=== PATIENT | female | born 1985 | race Asian ===

== ENCOUNTER 2017-10-15 01:20 | Inpatient (IN) | payer BC ==
[~2017-10-15] VITALS: Ht 162.6 cm; Wt 69.9 kg
[2017-10-15] MEDS: LACTATED RINGERS 1,000 ML IV SCH ×2 (02:24→03:25)
[2017-10-15] MEDS ORDERED: CITRIC ACID/SODIUM CITRATE 30 ML UDC PO ONE (02:45)
[2017-10-15 03:06] LABS: BASOPHILS # (AUTO) 0.1 K/uL (0.00-0.22); BASOPHILS % (AUTO) 1.3 % (0.0-2.0); EOSINOPHILS # (AUTO) 0.1 K/uL (0-0.4); EOSINOPHILS % (AUTO) 1.7 % (0.0-4.0); HEMATOCRIT 30.6 % (36-48); HEMOGLOBIN 9.9 g/dL (12.0-16.0); LYMPHOCYTES # (AUTO) 1.3 K/uL (2.5-16.5); LYMPHOCYTES % (AUTO) 20.3 % (20.5-51.1); MEAN CORPUSCULAR HEMOGLOBIN 27 pg (27-31); MEAN CORPUSCULAR HGB CONC 32 g/dL (33-37); MEAN CORPUSCULAR VOLUME 84 fL (80-94); MONOCYTES # (AUTO) 0.5 K/uL (0.8-1.0); MONOCYTES % (AUTO) 8.2 % (1.7-9.3); NEUTROPHILS # (AUTO) 4.6 K/uL (1.8-7.7); NEUTROPHILS % (AUTO) 68.5 % (42.2-75.2); PLATELET COUNT (AUTO) 172 K/uL (140-450); RED BLOOD CELL COUNT(AUTO) 3.65 MIL/uL (4.20-5.40); RED CELL DISTRIBUTION WIDTH 15.6 % (11.6-13.7); WHITE BLOOD COUNT (AUTO) 6.6 K/uL (4.8-10.8)
[2017-10-15 03:07] LABS: APPEARANCE,URINE SL CLOUDY (CLEAR); BILIRUBIN,URINE NEGATIVE (NEGATIVE); BLOOD, URINE NEGATIVE (NEGATIVE); COLOR,URINE YELLOW (YELLOW); LEUKOCYTE ESTERASE ,URINE NEGATIVE (NEGATIVE); NITRITE, URINE NEGATIVE (NEGATIVE); UGLUCOSE NEGATIVE (NEGATIVE)
[2017-10-15] MEDS ORDERED: PREN-546 PO (03:20)
[2017-10-15] MEDS ORDERED: FERR325E14 PO (03:20)
[2017-10-15] MEDS ORDERED: INFLUENZA VIRUS VACCINE QUAD 0.5 ML SYR IMVAC SCH ×2 (03:25→22:55)
[2017-10-15 03:28] LABS: ALBUMIN 2.5 g/dL (3.4-5.0); ANION GAP 12.6 (8-16); CARBON DIOXIDE 24.1 mmol/L (21-32); CREATININE 0.5 mg/dL (0.6-1.3); POTASSIUM 3.7 mmol/L (3.5-5.1); TOTAL BILIRUBIN 0.1 mg/dL (0.0-1.0)
[2017-10-15 03:32] VITALS: BP 115/68
[2017-10-15 03:40] LABS: RBC,URINE 0-5 (RARE) /HPF (0-5); WBC,URINE 0-5 (RARE) /HPF (0-5)
[2017-10-15] MEDS ORDERED: ceFAZolin 1,000 MG VIAL ONE (05:33)
[2017-10-15] MEDS ORDERED: CITRIC ACID/SODIUM CITRATE 30 ML UDC ONE (05:33)
[2017-10-15] MEDS ORDERED: ONDANSETRON 4 MG/2 ML VIAL IVP ONE (06:04)
[2017-10-15] MEDS ORDERED: BUPIVACAINE-MPF 0.75% 10 ML VIAL INJ ONE (06:04)
[2017-10-15] MEDS ORDERED: METOCLOPRAMIDE 10 MG/2 ML INJ VIAL IVP ONE (06:04)
[2017-10-15] MEDS ORDERED: OXYTOCIN 10 UNITS/ML VIAL ONE (06:08)
[2017-10-15] MEDS ORDERED: TRIAMCINOLONE 40 MG/ML 5ML VIAL ONE (06:08)
[2017-10-15] MEDS ORDERED: METHYLERGONOVINE 0.2 MG/ML AMP ONE (06:08)
[2017-10-15] MEDS ORDERED: MORPHINE PRES FREE 10 MG/10 ML AMP IV ONE (06:09)
[2017-10-15] MEDS ORDERED: OXYTOCIN 20 UNITS in LACTATED RINGERS 1,000 ML IV SCH (06:29)
[2017-10-15] MEDS ORDERED: KETOROLAC 30 MG/ML VIAL IVP PRN (06:30)
[2017-10-15] MEDS ORDERED: diphenhydrAMINE 50 MG/ML VIAL IVP PRN (06:30)
[2017-10-15] MEDS ORDERED: NALOXONE 0.4 MG/ML VIAL IVP PRN ×2 (06:30)
[2017-10-15] MEDS ORDERED: ONDANSETRON 4 MG/2 ML VIAL IVP PRN (06:30)
[2017-10-15] MEDS ORDERED: SIMETHICONE 80 MG TAB.CHEW PO PRN (07:10)
[2017-10-15] MEDS ORDERED: TEMAZEPAM 15 MG CAP PO PRN (07:10)
[2017-10-15] MEDS ORDERED: TRIMETHOBENZAMIDE 200 MG/2 ML SYR IM PRN (07:10)
[2017-10-15] MEDS ORDERED: METHYLERGONOVINE 0.2 MG/ML AMP IM PRN (07:10)
[2017-10-15] MEDS ORDERED: MEASLES, MUMPS, AND RUBELLA 1 VIAL SQVAC PRN (07:10)
--- NOTE | 2017-10-15 10:09 | NUR ---
PATIENT HAS BEEN SCREENED AND CATEGORIZED LOW NUTRITION RISK. PATIENT WILL BE SEEN WITHIN 7 DAYS OF ADMISSION. 10/21/[address]
[2017-10-15] MEDS: OXYTOCIN 20 UNITS in LACTATED RINGERS 1,000 ML IV SCH ×2 (12:20→22:37)
[2017-10-15 15:30] LABS: RAPID PLASMA REAGIN NON-REACTIVE (Non Reactiv)
[2017-10-15] MEDS ORDERED: DOCUSATE SOD/SENNA 50/8.6 MG 1 TAB PO SCH (21:00)
[2017-10-16] MEDS ORDERED: oxyCODONE/APAP 5/325 MG 1 TAB TAB PO PRN (01:00)
[2017-10-16] MEDS ORDERED: IBUPROFEN 800 MG TAB PO PRN (01:00)
[2017-10-16 06:15] LABS: BASOPHILS % (AUTO) 0.1 % (0.0-2.0); EOSINOPHILS # (AUTO) 0.1 K/uL (0-0.4); EOSINOPHILS % (AUTO) 0.8 % (0.0-4.0); HEMATOCRIT 29.9 % (36-48); HEMOGLOBIN 9.6 g/dL (12.0-16.0); LYMPHOCYTES # (AUTO) 0.8 K/uL (2.5-16.5); LYMPHOCYTES % (AUTO) 9.2 % (20.5-51.1); MEAN CORPUSCULAR HEMOGLOBIN 27 pg (27-31); MEAN CORPUSCULAR HGB CONC 32 g/dL (33-37); MEAN CORPUSCULAR VOLUME 85 fL (80-94); MONOCYTES # (AUTO) 0.5 K/uL (0.8-1.0); MONOCYTES % (AUTO) 5.8 % (1.7-9.3); NEUTROPHILS # (AUTO) 7.3 K/uL (1.8-7.7); PLATELET COUNT (AUTO) 159 K/uL (140-450); RED BLOOD CELL COUNT(AUTO) 3.53 MIL/uL (4.20-5.40); RED CELL DISTRIBUTION WIDTH 15.7 % (11.6-13.7); WHITE BLOOD COUNT (AUTO) 8.7 K/uL (4.8-10.8)
[2017-10-16] MEDS: HYDROcodone/APAP 5/325 MG 1 TAB TAB PO PRN ×2 (06:39→13:12)
[2017-10-16 06:54] LABS: NEUTROPHILS % (AUTO) 84.1 % (42.2-75.2)
--- NOTE | 2017-10-16 15:21 | NUR ---
CM NOTE L&D REVIEW FAXED TO [facility] / FAX# [phone], ATTN: JAMIE #[phone]
[2017-10-17] MEDS: HYDROcodone/APAP 5/325 MG 1 TAB TAB PO PRN (05:34)
[2017-10-17] MEDS ORDERED: IBUP-2213 PO (08:48)
== END 2017-10-17 16:20 | disposition home or self-care (01) | DRG 766 ==
LOC: MLD 01:20 → OBSVTOIN 01:47 → MFCC 08:24
PROVIDERS: ADMIT Obstetrics & Gynecology; ATTEND Obstetrics & Gynecology
PROC: 3E0234Z Introduction of Serum, Toxoid and Vaccine into Muscle, Percutaneous Approach (ICD-10-PCS; 2017-10-15)
PROC: 10D00Z1 Extraction of Products of Conception, Low, Open Approach (ICD-10-PCS; principal; 2017-10-15 06:00)
PROC: 3E0234Z Introduction of Serum, Toxoid and Vaccine into Muscle, Percutaneous Approach (ICD-10-PCS; 2017-10-16)
PROC: 3E0234Z Introduction of Serum, Toxoid and Vaccine into Muscle, Percutaneous Approach (ICD-10-PCS; 2017-10-17)
DX: O34.211 Maternal care for low transverse scar from previous cesarean delivery (principal); Z23 Encounter for immunization; Z37.0 Single live birth; Z3A.39 39 weeks gestation of pregnancy; Z82.49 Family history of ischemic heart disease and other diseases of the circulatory system
CPT/HCPCS: 36415; 51702; 80053; 81001; 85025; 86592; 86886; 86900; 86901; 87086; 90658; 90707; 90715; G0378; J0690; J1200; J1885; J2210; J2270; J2405; J2590; J2765; J3301; J3490; J7120